=== PATIENT | female | born 1945 | race Two or more races ===

== ENCOUNTER 2020-10-08 05:04 | Inpatient (IN) | payer OTHER ==
[~2020-10-08] VITALS: Ht 167.6 cm; Wt 46.3 kg
--- NOTE | 2020-10-08 05:44 | NUR ---
PTE REFIERE YAO DOLOR ABDOMINAL SE CHANDLER S/V Y SE UBIAC EN AREA DE OBSERVACION
--- NOTE | 2020-10-08 06:26 | NUR ---
SE RECIBE FEMINA ALERTA Y ORIENTADA POR RAMILA ESFERAS, EN NAZARIO CON BARANDAS ELEVADAS Y SEGURAS. SE CHANDLER MUESTRAS DE LABORATORIO ORDENADAS. SE CANALIZA CON AREA DE VENOPUNCION KAYCE DE EDEMA O ENROJECIMIENTO. SE ADMINISTRA IVF ORDENADO. SE REALIZA EKG Y SE MANTIENE EN OBSERVACION POR CAMBIOS.
[2020-10-09] MEDS ORDERED: LOSARTAN POTAS100 MG (08:54)
[2020-10-09] MEDS ORDERED: MONTELUKAST SOD10 MG (08:54)
[2020-10-09] MEDS ORDERED: SIMVASTATIN20 MG (08:54)
[2020-10-09] MEDS ORDERED: FAMOTIDINE20 MG (08:54)
[2020-10-09] MEDS ORDERED: AMLODIPINE BESYL5 MG (08:54)
[2020-10-09] MEDS ORDERED: CLOPIDOGREL BIS75 MG (08:54)
[2020-10-09] MEDS ORDERED: ALENDRONATE SOD35 MG (08:54)
[2020-10-09] MEDS ORDERED: PANTOPRAZOLE SO40 MG (08:54)
[2020-11-09] MEDS ORDERED: INTESTINEX680 M1 PO (08:39)
[2020-11-09] MEDS ORDERED: PROTONIX40 MG PO (08:39)
[2020-11-09] MEDS ORDERED: ULTRACET PO (08:39)
== END 2020-11-10 15:12 | disposition home or self-care (01) | DRG 329 ==
LOC: ER 05:04 → SURH 07:48
PROVIDERS: ADMIT Surgery; ATTEND Surgery
PROC: 0W9G0ZX Drainage of Peritoneal Cavity, Open Approach, Diagnostic (ICD-10-PCS; 2020-10-18)
PROC: 0DBN8ZX Excision of Sigmoid Colon, Via Natural or Artificial Opening Endoscopic, Diagnostic (ICD-10-PCS; 2020-10-18)
PROC: 0D1L0Z4 Bypass Transverse Colon to Cutaneous, Open Approach (ICD-10-PCS; principal; 2020-10-18 17:00)
DX: K57.20 Diverticulitis of large intestine with perforation and abscess without bleeding (principal); K65.1 Peritoneal abscess; N39.0 Urinary tract infection, site not specified; K52.89 Other specified noninfective gastroenteritis and colitis; Z20.822 Contact with and (suspected) exposure to COVID-19; Z53.31 Laparoscopic surgical procedure converted to open procedure; E87.6 Hypokalemia; B96.29 Other Escherichia coli [E. coli] as the cause of diseases classified elsewhere

== ENCOUNTER 2021-03-22 08:35 | Emergency (ER) | payer OTHER ==
[~2021-03-22] VITALS: Ht 165.1 cm; Wt 50.8 kg
[~2021-03-22 08:35] MED LIST: ALENDRONATE SOD35 MG; AMLODIPINE BESYL5 MG; CLOPIDOGREL BIS75 MG; FAMOTIDINE20 MG; INTESTINEX680 M1 PO; LOSARTAN POTAS100 MG; MONTELUKAST SOD10 MG; PANTOPRAZOLE SO40 MG; PROTONIX40 MG PO; SIMVASTATIN20 MG; ULTRACET PO
== END 2021-03-22 12:22 | disposition home or self-care (01) ==
LOC: ER 08:35
DX: S40.022A Contusion of left upper arm, initial encounter (principal); S50.12XA Contusion of left forearm, initial encounter; W22.8XXA Striking against or struck by other objects, initial encounter; Y93.89 Activity, other specified; Y92.89 Other specified places as the place of occurrence of the external cause; Y99.8 Other external cause status

== ENCOUNTER → 2022-01-06 08:00 | Outpatient (CLI) | payer OTHER ==
[~2022-01-06] VITALS: Ht 165.1 cm; Wt 63.5 kg
[~2022-01-06 08:00] MED LIST changes: +ALLEGRA ALLERGY60 MG PO
== END | disposition home or self-care (01) ==
LOC: LAB 08:00 → EDSTATUS 01-09 10:00 → SURG-SUITE 01-09 10:00
PROVIDERS: ATTEND Surgery
DX: K63.89 Other specified diseases of intestine (principal); Z03.818 Encounter for observation for suspected exposure to other biological agents ruled out; Z20.822 Contact with and (suspected) exposure to COVID-19; R63.4 Abnormal weight loss; R53.1 Weakness; R93.5 Abnormal findings on diagnostic imaging of other abdominal regions, including retroperitoneum; K57.20 Diverticulitis of large intestine with perforation and abscess without bleeding; K62.4 Stenosis of anus and rectum; I10 Essential (primary) hypertension

== ENCOUNTER → 2022-06-03 06:00 | Outpatient (CLI) | payer OTHER ==
[~2022-06-03] VITALS: Ht 165.1 cm; Wt 63.5 kg
== END | disposition home or self-care (01) ==
LOC: LAB 06:00 → SURG 06-05 11:15 → EDSTATUS 06-05 11:30 → SURG 06-05 11:30
PROVIDERS: ATTEND Surgery
DX: Z03.818 Encounter for observation for suspected exposure to other biological agents ruled out (principal); Z20.822 Contact with and (suspected) exposure to COVID-19; R53.1 Weakness; K63.89 Other specified diseases of intestine; R93.5 Abnormal findings on diagnostic imaging of other abdominal regions, including retroperitoneum; K57.20 Diverticulitis of large intestine with perforation and abscess without bleeding; K62.4 Stenosis of anus and rectum; R63.4 Abnormal weight loss

== ENCOUNTER 2022-07-16 13:31 | Inpatient (IN) | payer OTHER ==
[~2022-07-16] VITALS: Ht 165.1 cm; Wt 65.3 kg
[2022-07-16] MEDS ORDERED: GLUMETZA1000 MG PO (15:49)
[2022-07-16] MEDS ORDERED: BACTRIM 400-801 EACH PO (15:51)
[2022-08-07] MEDS ORDERED: MORGIDOX100 MG PO (12:49)
[2022-08-07] MEDS ORDERED: TRAM1TAB98 PO (12:49)
== END 2022-08-07 16:00 | disposition home or self-care (01) | DRG 329 ==
LOC: SURH 07-21 08:47 → O/R 07-21 08:47 → SURG 07-21 13:29 → SURH 07-21 20:07
PROVIDERS: ADMIT Surgery; ATTEND Surgery
PROC: 0DBP0ZZ Excision of Rectum, Open Approach (ICD-10-PCS; 2022-07-21)
PROC: 0WJH0ZZ Inspection of Retroperitoneum, Open Approach (ICD-10-PCS; 2022-07-21)
PROC: 0TQB0ZZ Repair Bladder, Open Approach (ICD-10-PCS; 2022-07-21)
PROC: 0UT90ZZ Resection of Uterus, Open Approach (ICD-10-PCS; 2022-07-21)
PROC: 0UT20ZZ Resection of Bilateral Ovaries, Open Approach (ICD-10-PCS; 2022-07-21)
PROC: 0UT70ZZ Resection of Bilateral Fallopian Tubes, Open Approach (ICD-10-PCS; 2022-07-21)
PROC: 0DNW0ZZ Release Peritoneum, Open Approach (ICD-10-PCS; 2022-07-21)
PROC: 0UBG0ZZ Excision of Vagina, Open Approach (ICD-10-PCS; 2022-07-21)
PROC: 0DJD8ZZ Inspection of Lower Intestinal Tract, Via Natural or Artificial Opening Endoscopic (ICD-10-PCS; 2022-07-21)
PROC: 0DTN0ZZ Resection of Sigmoid Colon, Open Approach (ICD-10-PCS; principal; 2022-07-21 16:45)
PROC: BT0 Imaging, Urinary System, Plain Radiography (ICD-10-PCS; 2022-07-28)
PROC: BW21ZZZ Computerized Tomography (CT Scan) of Abdomen and Pelvis (ICD-10-PCS; 2022-07-30)
DX: K57.20 Diverticulitis of large intestine with perforation and abscess without bleeding (principal); K65.1 Peritoneal abscess; N32.2 Vesical fistula, not elsewhere classified; N39.0 Urinary tract infection, site not specified; T81.49XA Infection following a procedure, other surgical site, initial encounter; L03.818 Cellulitis of other sites; Z16.23 Resistance to quinolones and fluoroquinolones; B96.20 Unspecified Escherichia coli [E. coli] as the cause of diseases classified elsewhere; B95.2 Enterococcus as the cause of diseases classified elsewhere; B37.2 Candidiasis of skin and nail; E11.65 Type 2 diabetes mellitus with hyperglycemia; N73.6 Female pelvic peritoneal adhesions (postinfective); N99.4 Postprocedural pelvic peritoneal adhesions; N32.89 Other specified disorders of bladder; N72 Inflammatory disease of cervix uteri; R63.4 Abnormal weight loss; I11.9 Hypertensive heart disease without heart failure; Z79.4 Long term (current) use of insulin; Z68.24 Body mass index [BMI] 24.0-24.9, adult; Z53.31 Laparoscopic surgical procedure converted to open procedure

== ENCOUNTER 2023-02-26 08:41 | Outpatient (CLI) | payer OTHER ==
[~2023-02-26 08:41] MED LIST changes: +BACTRIM 400-801 EACH PO; +GLUMETZA1000 MG PO; +MORGIDOX100 MG PO; +TRAM1TAB98 PO
== END 2023-02-26 08:52 | disposition home or self-care (01) ==
LOC: RX STUDY 08:41
PROVIDERS: ATTEND Surgery
DX: R63.4 Abnormal weight loss (principal); R53.1 Weakness; K63.89 Other specified diseases of intestine; R93.5 Abnormal findings on diagnostic imaging of other abdominal regions, including retroperitoneum; K57.20 Diverticulitis of large intestine with perforation and abscess without bleeding; K62.4 Stenosis of anus and rectum

== ENCOUNTER 2023-05-20 08:21 | Outpatient (CLI) | payer OTHER ==
[2023-05-20 09:32] LABS: ALBUMIN 3.4 gm/dL (3.4-5.0); BILIRUBIN TOTAL 0.78 mg/dL (0.3-1.2); CALCIUM 9.3 mg/dL (8.5-10.1); CREATININE SERUM 0.64 mg/dL (0.55-1.02); GFR 90.22; GLOBULINA 4.1 G/DL (2.4-3.5); POTASSIUM 4.65 mEq/L (3.5-5.1); TOTAL PROTEIN 7.5 gm/dL (6.4-8.2)
== END 2023-05-20 08:22 | disposition home or self-care (01) ==
LOC: LAB 08:21
PROVIDERS: ATTEND Internal Medicine
DX: E11.9 Type 2 diabetes mellitus without complications (principal)

== ENCOUNTER 2023-06-17 07:56 | Outpatient (CLI) | payer OTHER ==
[2023-06-17 09:02] LABS: HEMATOCRIT 47.9 % (36.0-45.00); HEMOGLOBIN 16.3 g/dL (12.0-15.00); MEAN CORPUSCULAR HEMOGLOBIN 32.4 pg (27.00-32.0); MEAN CORPUSCULAR HGB CONC 34.1 g/dl (32.0-36.0); PLATELET COUNT 226 K/uL (150-450); RED BLOOD COUNT 5.04 M/uL (4.00-6.00); RED CELL DISTRIBUTION WIDTH 13.5 % (11.5-14.5)
[2023-06-17 09:12] LABS: PH,URINE 5.5 (5.0-8.0); URINE APPEARANCE Clear; URINE BILIRRUBIN Negative (NEGATIVE); URINE BLOOD Moderate; URINE COLOR Yellow; URINE GLUCOSE Negative (NEGATIVE); URINE LEUKOCYTE Trace; URINE NITRATE Negative; URINE PROTEIN 30 (NEGATIVE); URINE UROBILINOGEN 0.2 E.U./dl
[2023-06-17 09:16] LABS: URINE BACTERIA 148.6 uL (0.0-1933); URINE EPITHELIAL CELLS 22.2 uL (0.0-38.8); URINE RBC 43.3 uL (0.0-20.8); URINE WBC 26.4 uL (0.0-23.2)
[2023-06-17 09:33] LABS: ALBUMIN 3.6 gm/dL (3.4-5.0); BILIRUBIN TOTAL 0.81 mg/dL (0.3-1.2); CALCIUM 9.1 mg/dL (8.5-10.1); CREATININE SERUM 0.64 mg/dL (0.55-1.02); GFR 90.22; POTASSIUM 4.4 mEq/L (3.5-5.1); TOTAL PROTEIN 7.6 gm/dL (6.4-8.2)
[2023-06-17 09:39] LABS: INR 1.03; PARTIAL THROMBOPLASTIN TIME 28.7 SECONDS (22.0-34.0); PROTHROMBIN TIME 10.8 SECONDS (9.0-11.5)
== END 2023-06-17 07:57 | disposition home or self-care (01) ==
LOC: LAB 07:56
PROVIDERS: ATTEND Surgery
DX: I10 Essential (primary) hypertension (principal); K57.20 Diverticulitis of large intestine with perforation and abscess without bleeding; K62.4 Stenosis of anus and rectum; K63.89 Other specified diseases of intestine; R53.1 Weakness; R63.4 Abnormal weight loss; R93.5 Abnormal findings on diagnostic imaging of other abdominal regions, including retroperitoneum

== ENCOUNTER 2023-06-22 13:50 | Outpatient (CLI) | payer OTHER | END 2023-06-22 23:00 | disposition home or self-care (01) | LOC: EKG 13:50 | PROVIDERS: ATTEND Internal Medicine | DX: I10 Essential (primary) hypertension (principal) ==